=== PATIENT | female | born 1980 | race Caucasian/White ===

== ENCOUNTER 2021-01-24 11:07 | Emergency (ER) | payer OTHER ==
[~2021-01-24 11:07] MED LIST: ARICEPT 5MG TABL5 MG PO; BUSPAR5 MG PO; DITROPAN XL10 MG PO; DITROPAN5 MG PO; EFFEXOR XR75 MG PO; ETODOLAC ER500 MG PO; IBUPROFEN800 MG PO; KEFLEX250 MG PO; LATUDA20 MG PO; MEDROL 4MG DOSEP4 MG PO; NORCO 5-325 TA1 EACH PO; NUVIGIL250 MG PO; TOPIRAMATE ER50 MG PO; VRAYLAR4.5 MG PO; ZOVIRAX200 MG PO
[2021-01-24] MEDS ORDERED: CYCLOBENZAPRINE10 MG PO (13:53)
[2021-01-24] MEDS ORDERED: MEDROL 4MG DOSEP4 MG PO (13:53)
== END 2021-01-24 14:09 | disposition home or self-care (01) ==
LOC: FER 11:07
DX: M25.551 Pain in right hip (principal); Z98.890 Other specified postprocedural states; Z88.6 Allergy status to analgesic agent
CPT/HCPCS: 73502; J1100

== ENCOUNTER 2021-02-27 01:04 | Emergency (ER) | payer OTHER ==
[~2021-02-27 01:04] MED LIST changes: +CYCLOBENZAPRINE10 MG PO
[2021-02-27 02:21] LABS: BASOPHIL 1.5 % (0-2); EOSINOPHIL 2.9 % (0-5); HCT 36.6 % (37.0-47.0); HGB 12.6 g/dl (12.5-16.0); MCH 31.8 pg (25.0-31.0); MCHC 34.4 g/dL (32.0-36.0); MCV 92.4 fL (78.0-100.0); MONOCYTE 5.8 % (0-12); MPV 9.9 fL (6.0-9.5); NEUTROPHIL 45.5 % (41-80); NRBC 0; PLT 273 K/uL (150-400); RBC 3.96 M/uL (4.20-5.40); WBC 6.5 K/uL (4.0-10.5)
[2021-02-27 02:38] LABS: ALBUMIN 3.6 g/dL (3.4-5.0); BILIRUBIN - TOTAL 0.5 mg/dL (0.2-1.0); BUN/CREAT RATIO (CALC) 12.2 RATIO; CREATININE 0.82 mg/dL (0.51-0.95); FT4 (FREE T4) 1.2 ng/dL (0.76-1.46); GLOBULIN (CALCULATION) 2.6 g/dL; POTASSIUM 3.2 mmol/L (3.5-5.1); TOTAL PROTEIN 6.2 g/dL (6.4-8.2)
[2021-02-27 02:39] LABS: PRO-BNP 72 pg/mL (<125)
[2021-02-27 04:09] LABS: BILIRUBIN NEGATIVE (NEGATIVE); BLOOD TRACE-INTACT Ery/uL (NEGATIVE); CLARITY CLEAR (CLEAR); COLOR YELLOW (YELLOW); GLUCOSE (U) NORMAL (NORMAL); LEUKOCYTES NEGATIVE Leu/uL (NEGATIVE); NITRITE NEGATIVE (NEGATIVE); PROTEIN NEGATIVE (NEGATIVE); UROBILINOGEN 0.2 mg/dL (0.2-1.0)
[2021-02-27 04:15] LABS: AMPHETAMINES NEGATIVE (NEGATIVE); BARBITURATES NEGATIVE (NEGATIVE); ECSTASY (MDMA) NEGATIVE (NEGATIVE); MARIJUANA (THC) NEGATIVE (NEGATIVE); METHADONE NEGATIVE (NEGATIVE); OPIATES NEGATIVE (NEGATIVE); OXYCODONE NEGATIVE (NEGATIVE)
[2021-02-27 04:18] LABS: URINARY RBC RARE
== END 2021-02-27 06:25 | disposition home or self-care (01) ==
LOC: FER 01:04
PROVIDERS: Emergency Medicine Emergency Medical Services
DX: E87.6 Hypokalemia (principal); F17.210 Nicotine dependence, cigarettes, uncomplicated; Z88.6 Allergy status to analgesic agent
CPT/HCPCS: 36415; 71045; 80053; 80305; 81001; 83880; 84439; 84443; 84484; 85025; 85379; 93005